=== PATIENT | female | born 2000 ===

== ENCOUNTER 2021-05-28 09:49 | Outpatient (CLI) | payer OTHER | END 2021-05-28 09:55 | disposition home or self-care (01) | LOC: RAD 09:49 | PROVIDERS: ATTEND Orthopaedic Surgery | DX: M79.672 Pain in left foot (principal) ==

== ENCOUNTER 2022-06-28 21:17 | Emergency (ER) | payer OTHER ==
[~2022-06-28] VITALS: Ht 180.3 cm; Wt 102.1 kg
== END 2022-06-29 01:27 | disposition home or self-care (01) ==
LOC: ER 21:17
DX: M54.89 Other dorsalgia (principal); F84.0 Autistic disorder